=== PATIENT | male | born 1995 | race Caucasian/White ===

== ENCOUNTER 2016-08-17 22:09 | Emergency (ER) | payer BC, OTHER, SELFPAY ==
[~2016-08-17] VITALS: Ht 175.3 cm; Wt 99.8 kg
[2016-08-17] MEDS ORDERED: CLON0.2T PO (22:23)
[2016-08-17] MEDS ORDERED: LOSA50TA20 PO (22:23)
[2016-08-18] MEDS ORDERED: cloNIDine 0.2 MG TAB PO ONE
[2016-08-18 00:29] VITALS: BP 170/72
[2016-08-18 00:46] LABS: BASO # 0.1 K/mm3 (0.0-0.2); BASO % 0.8 % (0.0-1.0); EOS # 0.1 K/mm3 (0.0-0.50); LARGE UNSTAINED CELL # 0.2 K/mm3 (0.0-0.4); LARGE UNSTAINED CELL % 1.4 % (0.0-4.0); LYMPH # 3.7 K/mm3 (1.5-6.5); LYMPH % 34.9 % (24.0-44.0); MEAN CORPUSCULAR HGB CONC 34.9 g/dl (32.0-36.5); MEAN CORPUSCULAR VOLUME 83.3 fl (80.0-96.0); MONO # 0.4 K/mm3 (0.0-0.8); MONO % 4.1 % (0.0-5.0); NEUTROPHILS # 6.2 K/mm3 (1.8-7.7); NEUTROPHILS % 57.8 % (36.0-66.0); PLATELET COUNT, AUTOMATED 222 k/mm3 (150-450); WHITE BLOOD COUNT 10.7 K/mm3 (4.0-10.0)
[2016-08-18 01:09] LABS: ANION GAP 8 MEQ/L (8-16); BLOOD UREA NITROGEN 17 MG/DL (7-18); CALCIUM LEVEL 9.5 MG/DL (8.5-10.1); CARBON DIOXIDE LEVEL 26 MEQ/L (21-32); CHLORIDE LEVEL 106 MEQ/L (98-107); GLUCOSE, FASTING 93 MG/DL (70-105); SODIUM LEVEL 140 MEQ/L (136-145)
[2016-08-18 01:52] VITALS: BP 152/88
--- NOTE | 2016-08-18 21:00 | ECGEPIP ---
Stationary ECG Study [facility] - ED Test Date: 2016-08-18 Pat Name: MADELINE NANCE Department: Room: - Gender: M Sr. Vendor Management Associate: dejuan : 1995 Requested By: Vj Tirado PA-C Order Number: [id number] Reading MD: Minnie Navarro Measurements Intervals [place] Rate: 101 P: 11 NM: 154 QRS: 48 QRSD: 95 T: 11 QT: 330 QTc: 428 Interpretive Statements SINUS TACHYCARDIA ABNORMAL RHYTHM ECG NO PRIOR FOR COMPARISON Electronically Signed On 08-18-2016 20:59:54 EDT by Minnie Navarro
== END 2016-08-18 01:56 | disposition home or self-care (01) ==
LOC: M ED 23:51
DX: M62.82 Rhabdomyolysis (principal); I10 Essential (primary) hypertension; Z79.899 Other long term (current) drug therapy

== ENCOUNTER 2016-08-18 20:59 | Emergency (ER) | payer OTHER ==
[~2016-08-18] VITALS: Ht 175.3 cm; Wt 99.8 kg
[~2016-08-18 20:59] MED LIST: CLON0.2T PO; LOSA50TA20 PO
[2016-08-18 22:51] VITALS: BP 148/87
== END 2016-08-18 23:28 | disposition home or self-care (01) ==
LOC: M ED 22:02
DX: I10 Essential (primary) hypertension (principal); Z79.899 Other long term (current) drug therapy

== ENCOUNTER → 2016-08-29 | Outpatient (CLI) | payer OTHER ==
[2016-08-29 13:30] LABS: ANION GAP 7 MEQ/L (8-16); BLOOD UREA NITROGEN 13 MG/DL (7-18); CALCIUM LEVEL 9.2 MG/DL (8.5-10.1); CARBON DIOXIDE LEVEL 30 MEQ/L (21-32); CHLORIDE LEVEL 100 MEQ/L (98-107); CREATININE FOR GFR 0.85 MG/DL (0.70-1.30); GLUCOSE, FASTING 93 MG/DL (70-105); POTASSIUM SERUM 4.2 MEQ/L (3.5-5.1); SODIUM LEVEL 137 MEQ/L (136-145)
== END ==
LOC: M LAB 12:41
DX: I10 Essential (primary) hypertension (principal)

== ENCOUNTER 2016-09-21 17:09 | Emergency (ER) | payer OTHER ==
[~2016-09-21] VITALS: Ht 167.6 cm; Wt 99.8 kg
[2016-09-21] MEDS ORDERED: NS 500 ML IV ONE (18:30)
[2016-09-21] MEDS ORDERED: METOCLOPRAMIDE INJ 10MG/2ML VIAL (J2765) IV ONE (18:30)
[2016-09-21] MEDS ORDERED: diphenhydrAMINE INJ 50MG/ML VIAL (J1200) IV ONE (18:30)
[2016-09-21] MEDS ORDERED: KETOROLAC 30 MG/ML VIAL (J1885) IV ONE (18:30)
[2016-09-21] MEDS ORDERED: ZOFR4TAB3 PO (19:19)
[2016-09-21 19:25] VITALS: BP 148/67
== END 2016-09-21 19:30 | disposition home or self-care (01) ==
LOC: M ED 18:13
DX: G43.909 Migraine, unspecified, not intractable, without status migrainosus (principal); R11.2 Nausea with vomiting, unspecified; I10 Essential (primary) hypertension; F17.200 Nicotine dependence, unspecified, uncomplicated; Z79.899 Other long term (current) drug therapy
CPT/HCPCS: 96374; 96375; 99282; J1200; J1885; J2765

== ENCOUNTER → 2017-04-28 | Outpatient (CLI) | payer OTHER ==
[~2017-04-28] MED LIST changes: +ZOFR4TAB3 PO
--- NOTE | 2017-04-28 10:54 | REP ---
Left knee series: Five views. History: Pain. Comparison study: February 15, 2015. Findings: Five views of the left knee demonstrate mild osteophytic lipping at the inferior articular margin of the patella on lateral radiograph. This may reflect early osteoarthritis. Bones, joints, and soft tissues are otherwise unremarkable. Impression: Early osteophytic lipping inferior pole of the patella. No acute bony abnormality. Signed by Chuck Cullen MD 04/28/2017 11:15 A
== END ==
LOC: M WUC 10:26
PROVIDERS: ATTEND Physician Assistant
DX: M25.562 Pain in left knee (principal)

== ENCOUNTER → 2017-08-14 | Outpatient (CLI) | payer OTHER | LOC: M WUC 16:56 | DX: M43.17 Spondylolisthesis, lumbosacral region (principal) | CPT/HCPCS: 72110 ==

== ENCOUNTER → 2021-09-07 | Outpatient (CLI) | payer OTHER ==
[~2021-09-07] MED LIST changes: +AMLO1TAB25 PO; +DOXY-443 PO; -LOSA50TA20 PO; +LOSA50TA28 PO; +ZOFR4TAB14 PO; -ZOFR4TAB3 PO
== END ==
LOC: M WUC 11:12
DX: R22.42 Localized swelling, mass and lump, left lower limb (principal)